=== PATIENT | female | born 1980 | race African-American/Black ===

== ENCOUNTER 2016-06-04 15:54 | Emergency (ER) | payer BC ==
[~2016-06-04] VITALS: Ht 165.1 cm; Wt 77.1 kg
[~2016-06-04 15:54] MED LIST: IBUPROFEN 600600 M1 PO; LORTAB 5 MG/5001 TA1 PO; NORCO 5-325 TA1 EACH PO; ZOFRAN ODT4 MG PO
[2016-06-04] MEDS ORDERED: DELTASONE20 MG PO (17:16)
[2016-06-04] MEDS ORDERED: CYCLOBENZAPRINE10 MG PO (17:16)
[2016-06-04] MEDS ORDERED: NORCO 5-325 TA1 EACH PO (17:18)
[2016-06-04 17:29] VITALS: BP 122/69
== END 2016-06-04 17:30 | disposition home or self-care (01) ==
LOC: ER 15:54
DX: M54.12 Radiculopathy, cervical region (principal); F17.210 Nicotine dependence, cigarettes, uncomplicated

== ENCOUNTER 2016-11-17 12:43 | Emergency (ER) | payer BC ==
[~2016-11-17] VITALS: Ht 167.6 cm; Wt 72.6 kg
--- NOTE | ~2016-11-17 | EKG ---
[address] [place] [employer] [place] [address] ELECTROCARDIOGRAM REPORT Name: CAROLYN ELLIS [facility] [id number] Admission: 11/17/16 Attend Phys: Discharge: 11/17/16 Date of : 80 Report #: [id number] THIS REPORT FOR: //name// [facility] ED Test Date: 2016-11-17 Test Time: 12:59:46 Pat Name: CAROLYN ELLIS Department: Room: Gender: F Club Waiter/Waitress: Prince BATRES : 1980 Requested By: Miriam Hardwick Order Number: [id number] MD: Piero Ruiz Measurements Intervals [place] Rate: 88 P: 44 IL: 140 QRS: 24 QRSD: 80 T: 28 QT: 384 QTc: 465 Interpretive Statements Sinus rhythm No significant abnormality No previous ECG available for comparison Electronically Signed On 11-18-2016 7:41:32 CDT by Piero Ruiz [email or web address] <ELECTRONICALLY SIGNED> By: Piero Ruiz MD, [facility] 11/18/16 0741 [id number] Piero Ruiz MD, FACC /EPI
[~2016-11-17 12:43] MED LIST changes: +CYCLOBENZAPRINE10 MG PO; +DELTASONE20 MG PO
[2016-11-17 13:05] LABS: ABSOLUTE NEUTROPHILS 5.3 thou/uL (1.4-8.2); BASOPHILS 0.5 % (0.0-2.0); EOSINOPHILS 0.2 % (0.0-3.0); HEMATOCRIT 32.8 % (37.0-47.0); HEMOGLOBIN 11.5 gm/dL (12.0-15.0); LYMPHOCYTES 17.5 % (24.0-44.0); MCH 41.8 pg (26.0-34.0); MCHC 35.2 g/dL (28.0-37.0); MCV 118.9 fL (80.0-100.0); MONOCYTES 3.3 % (1.0-8.0); PLATELET COUNT 249 thou/uL (150-400); POLYS 78.5 % (36.0-66.0); RBC 2.76 mil/uL (4.20-5.00); RDW 19.5 % (10.5-14.5); WBC 6.7 thou/uL (4.0-11.0)
[2016-11-17 13:06] LABS: MANUAL DIFF NO
[2016-11-17 13:29] LABS: ALBUMIN 3.3 g/dL (3.4-5.0); ALKALINE PHOSPHATASE 62 U/L (46-116); ANION GAP 12 mmol/L (7-16); BUN 4 mg/dL (7-18); CALCIUM 8.6 mg/dL (8.5-10.1); CHLORIDE 102 mmol/L (98-107); CO2 25 mmol/L (21-32); CREATININE 0.8 mg/dL (0.6-1.0); DIRECT BILIRUBIN 0.2 mg/dL (<0.1-0.3); GLUCOSE 118 mg/dL (74-106); SGOT 28 U/L (15-37); SGPT 22 U/L (30-65); SODIUM 139 mmol/L (136-145); TOTAL BILIRUBIN 0.8 mg/dL (<0.1-1.0); TOTAL PROTEIN 6.7 g/dL (6.4-8.2); TROPONIN-I < 0.04 ng/mL (<0.04-0.07)
[2016-11-17 13:30] LABS: POTASSIUM 2.9 mmol/L (3.5-5.1)
[2016-11-17] MEDS ORDERED: POTASSIUM20 PO (13:54)
[2016-11-17] MEDS ORDERED: ZOFRAN ODT4 MG PO (13:54)
[2016-11-17] MEDS ORDERED: PHENERGAN 25 MG25 M1 PO (13:54)
[2016-11-17] MEDS ORDERED: PROMS25 WY RECTAL (13:54)
[2016-11-17] MEDS ORDERED: SLOW-MAG64 M1 PO (13:59)
[2016-11-17 14:12] VITALS: BP 116/70
[2016-11-17] MEDS ORDERED: AMBIEN 5 MG TABL5 M1 PO (14:41)
[2016-11-17 14:54] LABS: ANISOCYTOSIS 2+; MACROCYTES 2+
== END 2016-11-17 14:40 | disposition home or self-care (01) ==
LOC: ER 12:43
PROVIDERS: Emergency Medicine
DX: K21.9 Gastro-esophageal reflux disease without esophagitis (principal); E87.6 Hypokalemia; E83.42 Hypomagnesemia; R20.2 Paresthesia of skin; F17.210 Nicotine dependence, cigarettes, uncomplicated

== ENCOUNTER 2017-07-26 08:04 | Inpatient (IN) | payer BC ==
[~2017-07-26] VITALS: Ht 152.4 cm; Wt 73.1 kg
--- NOTE | ~2017-07-26 | EKG ---
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
[2017-07-26 08:04] VITALS: BP 139/98
[~2017-07-26 08:04] MED LIST changes: +AMBIEN 5 MG TABL5 M1 PO; +PHENERGAN 25 MG25 M1 PO; +POTASSIUM20 PO; +PROMS25 WY RECTAL; +SLOW-MAG64 M1 PO
[2017-07-26 08:46] LABS: URINE BILIRUBIN 2+ (Negative); URINE BLOOD 3+ (Negative); URINE GLUCOSE-RANDOM* TRACE (Negative); URINE KETONES 2+ (Negative); URINE LEUKOCYTES TRACE (Negative); URINE NITRITE POSITIVE (Negative); URINE PROTEIN (DIPSTICK) 3+ (Negative)
[2017-07-26 08:47] LABS: URINE COLOR RED
[2017-07-26 08:47] LABS: ABSOLUTE NEUTROPHILS 6.2 thou/uL (1.4-8.2); BASOPHILS 0.6 % (0.0-2.0); EOSINOPHILS 0.4 % (0.0-3.0); HEMATOCRIT 42.9 % (37.0-47.0); HEMOGLOBIN 14.9 gm/dL (12.0-15.0); LYMPHOCYTES 17.2 % (24.0-44.0); MCH 34.3 pg (26.0-34.0); MCHC 34.8 g/dL (28.0-37.0); MCV 98.4 fL (80.0-100.0); MONOCYTES 9.1 % (1.0-8.0); PLATELET COUNT 236 thou/uL (150-400); POLYS 72.7 % (36.0-66.0); RBC 4.36 mil/uL (4.20-5.00); RDW 15.1 % (10.5-14.5); WBC 8.5 thou/uL (4.0-11.0)
[2017-07-26 08:48] LABS: ICTOTEST (BILI CONFIRMATORY) Positive (Negative); SQUAMOUS 4-10 Moderate /LPF (0-3); URINE CLARITY TURBID; URINE RBC >20 Many /HPF (0-2)
[2017-07-26 08:49] LABS: BACTERIA 1-9 Few /HPF (None Seen); CASTS None Seen /LPF (None Seen); CRYSTALS None Seen /LPF (None Seen); URINE WBC 0-5 Rare /HPF (0-5)
[2017-07-26 08:59] LABS: CALCIUM 9.8 mg/dL (8.5-10.1); CREATININE 3.1 mg/dL (0.6-1.0)
[2017-07-26 09:06] LABS: ALBUMIN 4.2 g/dL (3.4-5.0); DIRECT BILIRUBIN 0.1 mg/dL (<0.1-0.3); TOTAL BILIRUBIN 0.7 mg/dL (<0.1-1.0); TOTAL PROTEIN 8.1 g/dL (6.4-8.2)
[2017-07-26 09:56] LABS: AMP/METHAMP Negative (Negative); BARBITURATES Negative (Negative); BENZODIAZEPINES Negative (Negative); COCAINE Negative (Negative); METHADONE Negative (Negative); OPIATES Negative (Negative); PCP Negative (Negative)
[2017-07-26 10:05] VITALS: BP 157/88
[2017-07-26 11:05] VITALS: BP 134/84
[2017-07-26 11:10] VITALS: BP 124/89
[2017-07-26] MEDS ORDERED: WOMEN'S DAILY1 EAC2 PO (15:01)
[2017-07-26 15:53] VITALS: BP 112/78
[2017-07-26 20:58] VITALS: BP 109/65
[2017-07-27 03:27] VITALS: BP 93/61
[2017-07-27 06:09] LABS: ALBUMIN 2.6 g/dL (3.4-5.0); CALCIUM 6.3 mg/dL (8.5-10.1); CREATININE 1.9 mg/dL (0.6-1.0); MAGNESIUM 1.2 mg/dL (1.8-2.4); PHOSPHORUS 2.6 mg/dL (2.5-4.9)
[2017-07-27 08:00] VITALS: BP 102/70
[2017-07-27] MEDS ORDERED: PROTONIX40 M1 PO (09:50)
[2017-07-27] MEDS ORDERED: CEFUROXIME250 MG PO (09:51)
[2017-07-27 11:05] VITALS: BP 102/70
[2017-09-27] MEDS ORDERED: MAGIC MOUTHWASH SW&SWALLOW (10:27)
[2017-09-27] MEDS ORDERED: ZOFRAN ODT4 MG PO (10:27)
[2017-09-27] MEDS ORDERED: CARAFATE 1 GM TA1 G1 PO (10:27)
[2017-09-27] MEDS ORDERED: PROTONIX40 MG PO (10:27)
== END 2017-07-27 14:47 | disposition home or self-care (01) | DRG 683 ==
LOC: ER 08:04 → EROBS 09:56 → 4S 11:00
PROVIDERS: Emergency Medicine; Hospitalist
DX: N17.9 Acute kidney failure, unspecified (principal); E87.2 Acidosis; N39.0 Urinary tract infection, site not specified; F17.210 Nicotine dependence, cigarettes, uncomplicated; K29.70 Gastritis, unspecified, without bleeding; F12.10 Cannabis abuse, uncomplicated; E86.0 Dehydration; G89.29 Other chronic pain; Z28.21 Immunization not carried out because of patient refusal; Z79.899 Other long term (current) drug therapy
CPT/HCPCS: 10100

== ENCOUNTER 2017-11-05 12:23 | Emergency (ER) | payer OTHER ==
[~2017-11-05] VITALS: Ht 165.1 cm; Wt 70.3 kg
--- NOTE | ~2017-11-05 | EKG ---
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[place] : 1980 Requested By: Lisha Leary Order Number: [id number] MD: Manish Aguero Measurements Intervals [place] Rate: 81 P: 33 MT: 145 QRS: 27 QRSD: 76 T: 52 QT: 391 QTc: 454 Interpretive Statements Sinus rhythm Nonspecific T abnormalities, lateral leads Baseline wander in lead(s) I,II,aVR Compared to ECG 07/26/2017 10:15:35 T-wave abnormality now present Electronically Signed On 11-05-2017 13:31:46 CDT by Manish Aguero [email or web address] <ELECTRONICALLY SIGNED> By: Manish Aguero MD 11/05/17 1331 1306 130 Manish Aguero MD /FEI
[~2017-11-05 12:23] MED LIST changes: +CARAFATE 1 GM TA1 G1 PO; +CEFUROXIME250 MG PO; +MAGIC MOUTHWASH SW&SWALLOW; +PROTONIX40 M1 PO; +PROTONIX40 MG PO; +WOMEN'S DAILY1 EAC2 PO
[2017-11-05 13:05] LABS: URINE BILIRUBIN NEGATIVE (Negative); URINE BLOOD NEGATIVE (Negative); URINE CLARITY CLEAR; URINE COLOR YELLOW; URINE GLUCOSE-RANDOM* NEGATIVE (Negative); URINE KETONES NEGATIVE (Negative); URINE LEUKOCYTES-REFLEX NEGATIVE (Negative); URINE NITRITE-REFLEX NEGATIVE (Negative); URINE PROTEIN (DIPSTICK) NEGATIVE (Negative); URINE SPECIFIC GRAVITY <= 1.005 (1.005-1.035); URINE UROBILINOGEN 0.2 E.U./dl (0.2-1.0)
[2017-11-05 13:13] LABS: AMP/METHAMP Negative (Negative); BARBITURATES Negative (Negative); BENZODIAZEPINES Negative (Negative); COCAINE Negative (Negative); METHADONE Negative (Negative); OPIATES Negative (Negative); PCP Negative (Negative)
[2017-11-05 14:00] LABS: HEMATOCRIT 31.3 % (37.0-47.0); MCHC 35.1 g/dL (28.0-37.0); MCV 111.2 fL (80.0-100.0); PLATELET COUNT 209 thou/uL (150-400); RBC 2.82 mil/uL (4.20-5.00); RDW 17.5 % (10.5-14.5)
[2017-11-05 14:09] LABS: ANION GAP 7 mmol/L (7-16); BUN 4 mg/dL (7-18); CALCIUM 9.1 mg/dL (8.5-10.1); CHLORIDE 103 mmol/L (98-107); CO2 31 mmol/L (21-32); CREATININE 0.7 mg/dL (0.6-1.0); GLUCOSE 106 mg/dL (74-106); SODIUM 141 mmol/L (136-145)
[2017-11-05 14:15] LABS: POTASSIUM 2.5 mmol/L (3.5-5.1)
[2017-11-05 14:19] LABS: TROPONIN-I < 0.04 ng/mL (<0.06)
[2017-11-05 15:09] LABS: ANISOCYTOSIS 1+; MACROCYTES 1+
[2017-11-05] MEDS ORDERED: POTASSIUM20 PO (15:42)
== END 2017-11-05 16:08 | disposition left against medical advice (07) ==
LOC: ER 12:23
PROVIDERS: Physician Assistant
DX: R20.2 Paresthesia of skin (principal); E87.6 Hypokalemia; F17.210 Nicotine dependence, cigarettes, uncomplicated